=== PATIENT | female | born 1965 | race Two or more races ===

== ENCOUNTER 2018-10-25 06:29 | Day surgery (SDC) | payer OTHER ==
[2018-10-25] VITALS (11 sets, daily range): BP systolic 109–132; BP diastolic 57–82
[~2018-10-25] VITALS: Ht 162.6 cm; Wt 90.7 kg
[~2018-10-25 06:29] MED LIST: NKM; ceFAZolin 1gm IVPB IVPB ONE; celeBREX 200mg Cap **SURGERY PATIENTS ONLY ORAL ONE; oxyCONTIN 20mg tab ORAL ONE
[2018-10-25] MEDS ORDERED: LR 1000ml 1,000 ML IVLG SCH (09:01)
--- NOTE | 2018-10-25 09:01 | Anethesia Preoperative Eval ---
Anesthesia Pre-op PMH/ROS General Date of Evaluation: Oct 25, 2018 Anesthesiologist: Jose Angel ASA Score: ASA 2 Mallampati Score Class I : Soft palate, uvula, fauces, pillars visible Class II: Soft palate, uvula, fauces visible Class III: Soft palate, base of uvula visible Class IV: Only hard plate visible Mallampati Classification: Class II Surgeon: Eduardo Diagnosis: Right knee internal derangement Surgical Procedure: Right knee arthrocopy with lateral meniscus repair Anesthesia History: none Family History: no anesthesia problems Allergies: Coded Allergies: No Known Allergies (Unverified , 10/24/18) Medications: see eMAR Patient NPO?: Yes NPO Date: Oct 24, 2018 NPO Time: 22:00 Past Medical History Cardiovascular: Denies: HTN, CAD, [place], valve dz, arrhythmia, other Pulmonary: Denies: asthma, COPD, LITZY, other Gastrointestinal/Genitourinary: Reports: other - colitis; Denies: GERD, CRI, ESRD Neurologic/Psychiatric: Denies: dementia, CVA, depression/anxiety, TIA, other Endocrine: Denies: DM, hypothyroidism, steroids, other HEENT: Denies: cataract (L), cataract (R), glaucoma, EWIIAAPAAYP (L), EWIIAAPAAYP (R), other Hematology/Immune: Reports: anemia; Denies: DVT, bleeding disorder, other Musculoskeletal/Integumentary: Denies: OA, RA, DJD, DDD, edema, other Other: obesity PSxH Narrative: lap johnathon, MARITZA Anesthesia Pre-op Phys. Exam Physician Exam Last Vital Signs Date Time Temp Pulse Resp B/P (MAP) Pulse Ox O2 Delivery O2 Flow Rate FiO2 10/25/18 07:37 Room Air 10/25/18 07:32 97.0 62 18 109/57 95 Constitutional: NAD Cardiovascular: RRR Respiratory: CTA Airway Exam Mallampati Score: Class II MO: full ROM: full Anesthesia Pre-op A/P Labs see chart Urine Test Test 10/25/18 06:40 Urine HCG, Qualitative Negative (NEGATIVE) Studies Pre-op Studies: EKG - sr Risk Assessment & Plan Assessment: ASA II Plan: GA Status Change Before Surgery: No Pre-Antibiotics Drug: Ance 2g Given Within 1 Hr of Incision: Yes Kristen Cochran MD Oct 25, 2018 09:01
[2018-10-25] MEDS ORDERED: LORazepam Inj 2mg/ml 1ml IV PRN (09:15)
[2018-10-25] MEDS ORDERED: DiphenhydrAMINE 50mg/ml Inj IVP PRN (09:15)
[2018-10-25] MEDS ORDERED: fentaNYL 100 mcg/2 mL IV PRN (09:15)
[2018-10-25] MEDS ORDERED: Metoclopramide 10mg/2ml Inj IVP PRN (09:15)
[2018-10-25] MEDS ORDERED: Ketorolac 30mg Inj IV PRN (09:15)
[2018-10-25] MEDS ORDERED: Midazolam 2mg/2ml Inj IVP PRN (09:15)
[2018-10-25] MEDS ORDERED: Hydromorphone 0.5mg/0.5ml inj IVP PRN (09:15)
[2018-10-25] MEDS ORDERED: LR 1000ml ONE (09:30)
[2018-10-25] MEDS ORDERED: Dexamethasone 4mg/ml vial ONE (09:35)
[2018-10-25] MEDS ORDERED: Propofol 200mg/20ml IV ONE ×2 (09:35→10:30)
[2018-10-25] MEDS ORDERED: Lidocaine 1% MPF 10mg/ml 5ml ONE (09:35)
[2018-10-25] MEDS ORDERED: EPINEPHrine 1mg/1ml Amp ONE (09:43)
[2018-10-25] MEDS ORDERED: Bupivacaine 0.25% Inj 30ml INJ ONE (09:43)
[2018-10-25] MEDS ORDERED: Kenalog-40 1ml Vial ONE (09:43)
[2018-10-25] MEDS ORDERED: Duramorph PF 5mg/10ml amp ONE (09:43)
[2018-10-25] MEDS ORDERED: Lidocaine 1% 10mg/ml/Epi 0.005mg/ml 30ml vial INJ ONE (09:43)
--- NOTE | 2018-10-25 09:49 | Operative Note - PDOC ---
Operative Note Operative Note Pre-op Diagnosis: right knee meniscus tear Procedure: see op report Post-op Diagnosis: same as pre-op plus Operative Findings: consistent w/pre-op dx studies Specimen: none Complications: none Estimated Blood Loss: none Implant(s) used?: No Edwin Clark MD Oct 25, 2018 09:49
--- NOTE | 2018-10-25 09:49 | Pre-Procedure Note/Attestation ---
Pre-Procedure Note/Attestation Complete Prior to Procedure Planned Procedure: right Procedure Narrative: knee arthroscopy possible lateral menisectomy Indications for Procedure Pre-Operative Diagnosis: right knee meniscus tear Attestation I attest that I discussed the nature of the procedure; its benefits; risks and complications; and alternatives (and the risks and benefits of such alternatives ), prior to the procedure, with the patient (or the patient's legal congressional representative). I attest that, if there was a reasonable possibility of needing a blood transfusion, the patient (or the patient's legal congressional representative) was given the [facility] standardized written summary, pursuant to the Hugo Jacob Blood Safety Act ([place] Health and Safety Code # 1645, as amended). I attest that I re-evaluated the patient just prior to the surgery and that there has been no change in the patient's H&P, except as documented below: Edwin Clark MD Oct 25, 2018 09:49
[2018-10-25] MEDS ORDERED: NS Irrig 4000ml IRRIG ONE (10:12)
--- NOTE | 2018-10-25 10:35 | Immediate Post-Op Evaluation ---
Immediate Post-Op Evalulation Immediate Post-Op Evalulation Procedure: Right knee arthroscopy Date of Evaluation: Oct 25, 2018 Time of Evaluation: 10:36 IV Fluids: 500 Blood Products: 0 Estimated Blood Loss: min Urinary Output: 0 Blood Pressure Systolic: 112 Blood Pressure Diastolic: 77 Pulse Rate: 59 Respiratory Rate: 16 O2 Sat by Pulse Oximetry: 97 Temperature (Fahrenheit): 97.2 Pain Score (1-10): 0 Nausea: No Vomiting: No Complications 0 Patient Status: awake, reacts, patent, none Hydration Status: adequate Drug: Ancef 2g Given Within 1 Hr of Incision: Yes Kristen Cochran MD Oct 25, 2018 10:35
--- NOTE | 2018-10-25 10:36 | 48 Hour Post Anesthesia Eval ---
Post Anesthesia Evaluation Procedure: Right knee arthroscopy Date of Evaluation: Oct 25, 2018 Airway: patent Nausea: No Vomiting: No Hydration Status: adequate Cardiopulmonary Status: at baseline Mental Status/LOC: patient returned to baseline Post-Anesthesia Complications: 0 Follow-up care needed: ready to discharge Kristen Cochran MD Oct 25, 2018 10:35
--- NOTE | 2018-10-25 12:20 | NUR ---
Family member at bedside. Patient sleeping.
[2018-10-25] MEDS ORDERED: HYDROmorphone 1mg/ml Carpuject SUBQ PRN (17:30)
[2018-10-25] MEDS ORDERED: Tylenol #3 tab (300mg/30mg) ORAL PRN (17:30)
[2018-10-25] MEDS ORDERED: D5 1/2NS 1,000 ML IV SCH (17:30)
[2018-10-25] MEDS ORDERED: HYDROcodone/Acetamin 5/325 tab ORAL PRN (17:30)
--- NOTE | 2018-10-25 19:15 | Operative Note - Dictated ---
DATE OF OPERATION: 10/25/2018 PREOPERATIVE DIAGNOSIS: Internal derangement, possible medial and lateral meniscus tear. POSTOPERATIVE DIAGNOSES: 1. Right knee intrameniscal degeneration medial meniscus. 2. Hypertrophic fat pad, medial and lateral patellofemoral compartment. 3. Medial plica. PROCEDURES: 1. Right knee diagnostic arthroscopy. 2. Right knee arthroscopic medial and lateral patellofemoral synovectomy and incision of fat pad. SURGEON: Edwin Clark M.D. ANESTHESIA: General. INDICATION FOR PROCEDURE: The patient is a pleasant female who has had progressive right knee symptomatology. She had MRI, which showed some intrameniscal degeneration of meniscus as well as a possible tear of the lateral meniscus. She failed conservative treatment, elected to undergo right knee diagnostic arthroscopy and possible medial meniscectomy. Risks, limitations, expectations, and complications of procedure was detailed. All questions addressed. DESCRIPTION OF PROCEDURE: After informed consent was obtained, the patient was brought to the operating room, and placed the patient under general anesthesia. The right leg was prepped and draped in a sterile manner. Time-out was performed. An inferolateral stab incision was then made. There was significant resistance introducing the trocar through . Once the camera was placed in the patellofemoral compartment, there was evidence of hypertrophic fat pad and synovial tissue as well as a medial plica that was rubbing against the medial femoral condyle. Once this was done, the medial gutter was entered and free of loose bodies. Medial compartment was entered. Medial working portal was established. Synovectomy of the fat pad and synovial tissue was performed to better visualize medial compartment. At this point, attention turned towards the posterior horn of medial meniscus where there was concerns on the MRI of possible meniscal tear. This area was probed. There is intrameniscal degeneration, but no ankit tear. At this point, the intercondylar notch was entered. The ligamentum, mucosa, and synovial tissue was further debrided to visualize the ACL, which was probed and noted to be intact. The lateral compartment was then entered. Again, the posterior horn of lateral meniscus was evaluated given there was a sign of possible meniscal degeneration. There is no gross tear of the lateral meniscus. At this point, attention was directed towards the medial plica. This was completely debrided. Once was debrided, there was no further soft tissue impingement on the medial femoral condyle. At this point, the instruments were removed. Portal sites were closed with 3-0 Monocryl sutures. Steri-Strips and a sterile dressing were applied. The patient was awoken and taken to recovery room with stable vital signs. ESTIMATED BLOOD LOSS: None. COMPLICATIONS: None. SPECIMENS: None. IMPLANTS: None. Edwin Clark M.D. DR: SUKHDEV JOB#: [id number] CC:
== END 2018-10-25 13:20 | disposition home or self-care (01) ==
LOC: SUR 06:29
DX: M79.4 Hypertrophy of (infrapatellar) fat pad (principal); M23.303 Other meniscus derangements, unspecified medial meniscus, right knee
CPT/HCPCS: 29876; 81025; J0171; J0690; J1100; J1885; J2250; J2405; J2704; J3010; J3301; J3490; 94003; 94150